=== PATIENT | female | born 1995 | race African-American/Black ===

== ENCOUNTER 2022-07-11 04:08 | Emergency (ER) | payer MEDICAID ==
[~2022-07-11] VITALS: Ht 165.1 cm; Wt 47.8 kg
[2022-07-11 04:15] VITALS: BP 114/52
== END 2022-07-11 14:05 | disposition home or self-care (01) ==
LOC: ER 04:08
DX: R05.9 Cough, unspecified (principal); Z87.01 Personal history of pneumonia (recurrent); Z88.2 Allergy status to sulfonamides
CPT/HCPCS: 71045; 99283